=== PATIENT | female | born 2000 | race Two or more races ===

== ENCOUNTER 2022-09-23 22:07 | Emergency (ER) | payer BC, OTHER ==
[~2022-09-23] VITALS: Ht 157.5 cm; Wt 52.2 kg
--- NOTE | 2022-09-23 22:50 | NUR ---
BIBS FROM HOME C/O VAGINAL PAIN AND BLOOD AND URINE X 3 HOURS. ADMITS TO INTERCOURSE YESTERDAY. DENIES N/V AND FEVER. PAIN 4/10 "BURNING". PT IS ALERT AND ORIENTED. RREVEN AND NONLABORED
--- NOTE | 2022-09-23 23:20 | NUR ---
CHAPERONED DR LUZ DURING PELVIC EXAM
[2022-09-23 23:51] LABS: BILIRUBIN,URINE NEGATIVE (NEGATIVE); COLOR,URINE DARK YELLOW (YELLOW); LEUKOCYTE ESTERASE ,URINE 2+ (NEGATIVE); NITRITE, URINE NEGATIVE (NEGATIVE); PROTEIN,URINE TRACE mg/dl (NEGATIVE); UGLUCOSE NEGATIVE (NEGATIVE); UROBILINOGEN,URINE 0.2 EU/dL (0.2)
[2022-09-23 23:56] LABS: BACTERIA,URINE Rare /HPF (None Seen); RBC,URINE TOO NUMEROUS TO COUN /HPF (0-2); SQUAMOUS EPITHELIAL CELL,UR Few /HPF (None Seen)
[2022-09-24] MEDS ORDERED: NITR100C6 PO (00:06)
[2022-09-24] MEDS ORDERED: NITROFURANTOIN/MONOHYDRATE MACROCRYSTALS 100 MG CAPSULE ONE (00:10)
--- NOTE | 2022-09-24 00:13 | NUR ---
Patient discharged to home in stable condition. Written and verbal after care instructions given. Patient verbalizes understanding of instruction.
[2022-09-24 00:25] VITALS: BP 109/80
[2022-09-24] MEDS ORDERED: NITROFURANTOIN/MONOHYDRATE MACROCRYSTALS 100 MG CAPSULE PO ONE (00:30)
== END 2022-09-24 00:25 | disposition home or self-care (01) ==
LOC: ER 22:10
DX: N39.0 Urinary tract infection, site not specified (principal)
CPT/HCPCS: 81001; 87086-TC; 87110-TC; 87210-TC